=== PATIENT | male | born 1950 | race Caucasian/White ===

== ENCOUNTER 2019-04-15 15:25 | Emergency (ER) | payer OTHER, MEDICARE ==
[2019-04-15 15:33] VITALS: BP 136/75
[2019-04-15] MEDS ORDERED: PROPARACAINE 0.5% OPHTH DROPS 15 ML EACHEYE STA (15:37)
--- NOTE | 2019-04-15 15:59 | ED Physician Documentation ---
History of Present Illness - Stated complaint Stated Complaint: RT EYE INJ - Chief complaint Chief Complaint: Heent - Additonal information Additional information: This is a 68-year-old who presents with right eye redness. Patient was moving b [employer] in his yard yesterday and he thinks branch flipped up and hit him in the right lower eye. He thinks is might have actually hit him through the right lower eyelid. He checked his eye for debris afterwards but did not see any. He had a little bit of redness in the area of the impact on his sclerae yesterday, but this morning the redness had spread out further throughout his eye and his insisted he come in. He states his vision appears normal to him, denies any blurriness or visual loss. He does not have any visual cuts or dark areas. He does have some chronic floaters which are unchanged. He states his eye is mildly irritated, a 1/10 currently. Review of Systems Eyes: reports: Irritation Skin: denies: Laceration (s) PD PAST MEDICAL HISTORY - Past Medical History Past Medical History: Yes Cardiovascular: None Respiratory: None Neuro: None Endocrine/Autoimmune: None GI: None : Kidney stones, Other HEENT: None Psych: None Musculoskeletal: None Derm: None - Past Surgical History Past Surgical History: Yes Ortho: Other - Present Medications Home Medications: Ambulatory Orders Medication Instructions Recorded Confirmed Erythromycin Base [Erythromycin 3.5 gm TOP BID 5 Days #1 tube 04/15/19 Ophthalmic Ointment] - Allergies Allergies/Adverse Reactions: Allergies Allergy/AdvReac Type Severity Reaction Status Date / Time No Known Drug Allergies Allergy Verified 04/15/19 15:29 - Social History Does the pt smoke?: No Smoking Status: Former smoker Does the pt drink ETOH?: No Does the pt have substance abuse?: No - Immunizations Immunizations are current?: Yes - POLST Patient has POLST: No PD ED PE NORMAL - Vitals Vital signs reviewed: Yes - General General: Alert and oriented X 3 - HEENT HEENT: Other (There is sub-conjunctival hemorrhage on the right eye extending around the sclera. There is no bullous or raised component to it. The subconjunctival hemorrhages greatest underneath the inferior eyelid. Pupils are equal round reactive to light 5 mm bilaterally. There is no obvious corneal abrasion or laceration. With instillation of proparacaine and fluorescein staining careful examination of the eyes performed and there are no areas of focal uptake/abrasion or laceration, no Ed sign. Patient has full extraocular movements bilaterally. Acuity L 20/70, R 20/20, BL 20/25, which is baseline for patient. He does not have his corrective lenses at this time) - Respiratory Respiratory: No respiratory distress - Extremities Extremities: No deformity - Neuro Neuro: Alert and oriented X 3 - Psych Psych: Normal mood, Normal affect Results - Vitals Vitals: Vital Signs - 24 hr 04/15/19 15:29 Temperature 36.8 C Heart Rate 71 Respiratory 15 Rate Blood Pressure 136/75 H O2 Saturation 99 Oxygen O2 Source Room air PD MEDICAL DECISION MAKING - ED course Complexity details: considered differential (Subconjunctival hemorrhage, corneal abrasion, corneal laceration, retinal pathology, ruptured globe) ED course: This is a very pleasant 68-year-old male who presents due to right eye redness after a branch impacted his eye yesterday. Patient is well-appearing, he states his visual acuity is normal for him, denies any visual changes or cuts, no signs of retinal pathology. On exam his pupils are equal round reactive to light, a careful fluorescein stain of his eye and examination of the entire visible portion of the sclera and globe show no signs of rupture, Ed sign, or laceration. His visual acuity is at his baseline. He has a small amount of diffuse uptake over the inferior aspect of the eye where he has a subconjunctival hemorrhage, but no focal areas. It appears that he has a subconjunctival hemorrhage without signs of more serious damage to the eye. I discussed with him supportive care and did prescribe him some with erythromycin ointment to be used for mild eye irritation. I discussed strict return precautions with any vision changes, if his hemorrhage is significantly increasing, or if he is having any changes in his visual ortiz or any other concerning symptoms. Patient agreed and was discharged home. Departure - Departure Disposition: 01 Home, Self Care Clinical Impression: Subconjunctival hemorrhage of right eye Condition: Good Instructions: ED Eye Injury Subconj Hemorrhage Prescriptions: Erythromycin Base [Erythromycin Ophthalmic Ointment] 3.5 gm TOP BID 5 Days #1 tube Comments: You appear to have a subconjunctival hemorrhage, which should absorb on its own over the next several weeks. I do not see signs of a specific scratch or abrasion to your eye, but you may use the erythromycin ointment to keep the eye moist and to help facilitate healing. If you are developing any vision changes, increasing eye pain, cloudiness or whiteness of lens or pupil area of your eye, return to the emergency department immediately Discharge Date/Time: 04/15/19 16:31
== END 2019-04-15 16:31 | disposition home or self-care (01) ==
LOC: ED 15:25
DX: H11.31 Conjunctival hemorrhage, right eye (principal); W20.8XXA Other cause of strike by thrown, projected or falling object, initial encounter; Y93.H2 Activity, gardening and landscaping; Y92.007 Garden or yard of unspecified non-institutional (private) residence as the place of occurrence of the external cause; Z87.891 Personal history of nicotine dependence
CPT/HCPCS: 99282; 99283; J3490

== ENCOUNTER 2021-10-08 04:03 | Emergency (ER) | payer MEDICARE, OTHER ==
--- NOTE | 2021-10-08 04:23 | ED Physician Documentation ---
PD HPI ABD PAIN - Stated complaint Stated Complaint: RT ABD PAIN - Chief complaint Chief Complaint: Abd Pain - History obtained from History obtained from: Patient - History of Present Illness Timing - onset: Enter time (03:30), Today Timing - details: Abrupt onset Pain level max: 9 Pain level now: 4 Quality: Pain Associated symptoms: No: Fever Similar symptoms before: Diagnosis (similar to previous episodes of renal colic) Recently seen: Surgery (left eye cataract surgery yesterday at noon) - Additional information Additional information: c/o sudden onset right flank pain waking him from sleep at 3:30 AM this morning. He has h/o renal colic and symptoms tonight feel similar to previous. Patient had left eye cataract surgery yesterday. Review of Systems Constitutional: denies: Fever GI: reports: Nausea. denies: Abdominal Pain, Vomiting : denies: Dysuria, Hematuria PD PAST MEDICAL HISTORY - Past Medical History Cardiovascular: None Respiratory: None Neuro: None Endocrine/Autoimmune: None GI: None : Kidney stones, Other HEENT: None Psych: None Musculoskeletal: None Derm: None - Past Surgical History Past Surgical History: Yes Ortho: Other - Present Medications Home Medications: Ambulatory Orders Medication Instructions Recorded Confirmed Erythromycin Base [Erythromycin 3.5 gm TOP BID 5 Days #1 tube 04/15/19 Ophthalmic Ointment] HYDROcod/ACETAM 5/325 [[place] 5/325] 1 - 2 tablet PO Q6H PRN #14 tablet 10/08/21 Ondansetron Odt [Zofran] 4 mg TL Q6H PRN #10 tablet 10/08/21 Tamsulosin [Flomax] 0.4 mg PO DAILY #10 cap 10/08/21 - Allergies Allergies/Adverse Reactions: Allergies Allergy/AdvReac Type Severity Reaction Status Date / Time No Known Drug Allergies Allergy Verified 10/08/21 05:14 - Social History Does the pt smoke?: No Smoking Status: Former smoker Does the pt drink ETOH?: No Does the pt have substance abuse?: No - Immunizations Immunizations are current?: Yes - POLST Patient has POLST: No PD ED PE NORMAL - Vitals Vital signs reviewed: Yes - General General: Alert and oriented X 3, No acute distress, Well developed/nourished - HEENT HEENT: PERRL - Cardiac Cardiac: RRR, No murmur - Respiratory Respiratory: No respiratory distress, Clear bilaterally - Abdomen Abdomen: Soft, Non tender - Back Back: No CVA TTP Results - Vitals Vitals: Vital Signs - 24 hr 10/08/21 10/08/21 10/08/21 04:15 04:30 04:37 Temperature 36.2 C L Heart Rate 71 64 Respiratory 19 20 18 Rate Blood Pressure 165/92 H O2 Saturation 99 99 10/08/21 05:58 Temperature 37.2 C Heart Rate 76 Respiratory 19 Rate Blood Pressure 154/89 H O2 Saturation 100 Oxygen O2 Source Room air - Labs Labs: Laboratory Tests 10/08/21 10/08/21 10/08/21 04:30 04:30 05:22 WBC 7.8 RBC 5.38 Hgb 17.0 Hct 50.9 MCV 94.6 H MCH 31.6 H MCHC 33.4 RDW 12.6 Plt Count 255 MPV 10.2 Neut # (Auto) 4.5 Lymph # (Auto) 2.3 [place] # (Auto) 0.5 Eos # (Auto) 0.4 Baso # (Auto) 0.1 Absolute Nucleated RBC 0.00 Nucleated RBC % 0.0 Sodium 142 Potassium 4.1 Chloride 104 Carbon Dioxide 29 Anion Gap 9.0 BUN 26 H Creatinine 1.2 Estimated GFR (MDRD) 60 L Glucose 125 H Calcium 9.9 Total Bilirubin 1.1 H AST 21 ALT 21 Alkaline Phosphatase 81 Total Protein 7.5 Albumin 4.4 Globulin 3.1 Albumin/Globulin Ratio 1.4 Lipase 33 Urine Color YELLOW Urine Clarity CLEAR Urine pH 5.5 Ur Specific [place] >=1.030 H Urine Protein NEGATIVE Urine Glucose (UA) NEGATIVE Urine Ketones TRACE Urine Occult Blood NEGATIVE Urine Nitrite NEGATIVE Urine Bilirubin NEGATIVE Urine Urobilinogen 0.2 (NORMAL) Ur Leukocyte Esterase NEGATIVE Ur Microscopic Review NOT INDICATED Urine Culture Comments NOT INDICATED - Rads (name of study) CT A/P Radiology: Prelim report reviewed, See rad report PD MEDICAL DECISION MAKING - ED course Complexity details: reviewed results, re-evaluated patient, considered differential, d/w patient ED course: presents with sudden onset right flank of sudden onset approximately one hour [employer]. CT A/P demonstrates bilateral renal stones (non-obstructing) with a 6mm right proximal ureteral calculus. he had severe pain with nausea and vomiting after ED arrival but immediately before I evaluated him, and his pain and nausea were nearly resolved at the time of my H+P. he is given toradol IV as well as one liter bolus IV NS. results of CT reviewed with patient. He is given flomax PO in ED. He did not require further medication in ED , but provided with vicodin take-home pack and rx for vicodin, zofran, and flomax electronically submitted to his pharmacy of choice. I am prescribing a short course of short-acting opioid pain medication for this patient. I have reviewed the patients POLICEMAN and no concerning findings were noted. I have discussed that the opioids are for short term therapy only, and will not be refilled from the ED Departure - Departure Disposition: Home, Self Care Clinical Impression: Renal colic Condition: Good Instructions: ED Stone Renal W Colic Prescriptions: Tamsulosin [Flomax] 0.4 mg PO DAILY #10 cap HYDROcod/ACETAM 5/325 [[place] 5/325] 1 - 2 tablet PO Q6H PRN #14 tablet PRN Reason: Pain Ondansetron Odt [Zofran] 4 mg TL Q6H PRN #10 tablet PRN Reason: Nausea / Vomiting Comments: The CT scan shows a 6 millimeter kidney stone in the right ureter (the small tube connecting the kidney to the bladder) and this is the cause of your pain. The stone might pass on its own or else it might need to be removed with a procedure; following up with a urologist for reevaluation will help in determining whether such a procedure is indicated. The CT scan also shows two stones in the right kidney and one in the left kidney; kidney stones that are in the kidney do not cause pain until and unless they come out of the kidney and get stuck in one of the ureters. Prescriptions for tamsulosin (flomax, which increases likelihood of passing a kidney stone and decreases the time to passing the stone), ondansetron (anti- nausea medication), and hydrocodone/acetaminophen have been electronically submitted to [facility] in [place]. I am prescribing a short course of narcotic pain medication for you. These are potentially dangerous and addictive medications that should be used carefully. These medications may constipate you. Take an [id number] stool softener (docusate) twice daily with plenty of water while taking these medications. If you go 24 hours without a bowel movement, take [id number] miralax, per package instructions. Do not drink or drive while taking these medications. If you received narcotic or sedating medications while in the emergency department, do not drive for 24 hours. Store this medication in a safe, secure place and out of reach of children. It is a violation of federal law to give or sell this medication to another person or to use in a manner other than prescribed. The ED will not refill narcotic prescriptions, including prescriptions lost or stolen. To dispose of unwanted medications: 1. [facility] at [address] in [place] has a medication drop box. They accept prescription medications (in pill form) Tuesday through Tuesday 9:00 a.m. to 5:00 p.m. 2. The [facility] [employer] accepts prescription medications (in pill form only) for disposal year round. Call for more information. 3. Contact the [facility] for the next [facility] sponsored prescription drug collection event. , [phone], or [phone]; Discharge Date/Time: 10/08/21 06:18
[2021-10-08] MEDS ORDERED: KETOROLAC 30 MG/ML VIAL IVP STA (04:37)
[2021-10-08] MEDS ORDERED: ONDANSETRON 4 MG/2 ML VIAL IVP STA (04:37)
[2021-10-08 04:49] LABS: BASOPHILS # (AUTO) 0.1 10^3/uL (0.0-0.1); BASOPHILS % (AUTO) 0.9 %; EOSINOPHILS # (AUTO) 0.4 10^3/uL (0.0-0.7); EOSINOPHILS % (AUTO) 5.6 %; HCT - HEMATOCRIT 50.9 % (42.0-52.0); LYMPHOCYTES # (AUTO) 2.3 10^3/uL (1.5-3.5); LYMPHOCYTES % (AUTO) 28.7 %; MEAN CORPUSCULAR HEMOGLOBIN 31.6 pg (27.0-31.0); MEAN CORPUSCULAR HGB CONC 33.4 g/dL (32.0-36.0); MEAN CORPUSCULAR VOLUME 94.6 fL (80.0-94.0); MEAN PLATELET VOLUME 10.2 fL (7.4-11.4); MONOCYTES # (AUTO) 0.5 10^3/uL (0.0-1.0); MONOCYTES % (AUTO) 6.5 %; NEUTROPHILS # (AUTO) 4.5 10^3/uL (1.5-6.6); PLT - PLATELET COUNT 255 10^3/uL (130-450); RED BLOOD COUNT 5.38 10^6/uL (4.70-6.10); RED CELL DISTRIBUTION WIDTH 12.6 % (12.0-15.0); WHITE BLOOD COUNT 7.8 x10^3/uL (4.8-10.8)
[2021-10-08 05:01] LABS: ALBUMIN 4.4 g/dL (3.2-5.5); ALBUMIN/GLOBULIN RATIO 1.4 (1.0-2.2); BILIRUBIN,TOTAL 1.1 mg/dL (0.2-1.0); CALCIUM 9.9 mg/dL (8.5-10.3); CREATININE 1.2 mg/dL (0.6-1.2); POTASSIUM 4.1 mmol/L (3.5-5.0); TOTAL PROTEIN 7.5 g/dL (6.7-8.2)
[2021-10-08 05:36] LABS: BILIRUBIN,URINE NEGATIVE (NEGATIVE); CLARITY,URINE CLEAR (CLEAR); GLUCOSE, URINE (UA) NEGATIVE (NEGATIVE); KETONES,URINE (UA) TRACE mg/dL (NEGATIVE); LEUKOCYTE ESTERASE, URINE NEGATIVE (NEGATIVE); NITRITE,URINE NEGATIVE (NEGATIVE); OCCULT BLOOD,URINE NEGATIVE (NEGATIVE); PH,URINE 5.5 PH (5.0-7.5); PROTEIN,URINE NEGATIVE (NEGATIVE); UROBILINOGEN,URINE 0.2 (NORMAL) E.U./dL (NORMAL)
[2021-10-08] MEDS ORDERED: TAMSULOSIN 0.4 MG CAPSULE PO STA (05:49)
[2021-10-08] MEDS ORDERED: HYDROcod/ACET 5/325 Prepack 4 PO STA (05:52)
[2021-10-08 06:01] VITALS: BP 154/89
--- NOTE | 2021-10-08 09:09 | CT Report ---
PROCEDURE: Abdomen/Pelvis WO INDICATIONS: right flank pain TECHNIQUE: Noncontrast 5 mm thick sections acquired from the diaphragms to the symphysis. 5 mm coronal and sagi ttal reformats were then performed. For radiation dose reduction, the following was used: automated exposure control, adjustment of mA and/or kV according to patient size. COMPARISON: None. FINDINGS: Image quality: Excellent. ABDOMEN: Lung bases: Lung bases are clear. Heart size is normal. Small hiatal hernia. Solid organs: Liver and spleen are normal in size. Gallbladder is normal. Pancreas is normal in co ntours. No adrenal nodules. There is a 6 mm stone in the mid right ureter causing mild right hydronephrosis. The stone measures 5 81 HU. Kidneys are normal in size. There are 3 nonobstructive stones in right kidney measuring 1-5 m m. A 4 mm stone is seen in the inferior pole of the left kidney. No left hydronephrosis. Peritoneum and bowel: Unenhanced bowel loops demonstrate normal wall thickness and caliber. No free fluid or air. Nodes and vessels: No retroperitoneal or mesenteric adenopathy by size criteria. Aorta and inferior vena cava are normal in caliber. Miscellaneous: No ventral hernias. PELVIS: Genitourinary: Bladder wall thickness is normal. Prostate is prominent. Miscellaneous: No inguinal adenopathy. Small fat-containing inguinal hernias are present bilaterall y. Bones: No suspicious bony lesions. No vertebral body compression fractures. IMPRESSION: 1. There is a 6 mm obstructive stone in the mid right ureter causing mild right hydronephrosis. 2. Nephrolithiasis bilaterally with nonobstructing renal calculi. No significant discrepancy with the preliminary interpretation. Reviewed by: Pranay Liao MD on 10/08/2021 9:07 AM PDT Approved by: Pranay Liao MD on 10/08/2021 9:07 AM PDT Station ID: [id number]
== END 2021-10-08 06:18 | disposition home or self-care (01) ==
LOC: ED 04:03
DX: N13.2 Hydronephrosis with renal and ureteral calculous obstruction (principal); Z87.891 Personal history of nicotine dependence
CPT/HCPCS: 36415; 74176; 80053; 81003; 83690; 85025; 96374; 96375; 99283; 99284; A9270; 81001; 87086